=== PATIENT | male | born 1975 | race Caucasian/White ===

== ENCOUNTER 2025-04-06 09:55 | Day surgery (SDC) | payer OTHER, SELFPAY ==
[2025-04-06] VITALS (7 sets, daily range): BP systolic 107–128; BP diastolic 65–78; PULSE 62–73; RESP 11–16; TEMP 36.5–36.8; O2SAT 96–100; BMI 29.9
--- NOTE | 2025-04-06 13:47 | SUR.PHASEII ---
1317: Pt received in [facility] via [facility]. Report from Sona SALAZAR and Dr. Sharpe. Pt groggy. Easily aroused. Resp even, unlabored. VS stable. No c/o pain, discomfort.
--- NOTE | 2025-04-06 13:56 | SUR.PHASEII ---
1335: Pt stated he needed to void. Provided urinal. Voided 250cc pink tinged urine. 1350: Pt more alert. VS stable. Sitting up tolerating po fluids with no difficulty swallowing and no n/v.
--- NOTE | 2025-04-06 15:02 | SUR.PHASEII ---
1435: Pt fully awake, oriented x3. Correctional officers have been at bedside since pt arrival to [facility]. Pt dressed. Assisted to transport chair. Ambulation steady. Pt stataed understanding of discharge instructions. Pt discharged from [facility] in stable condition.
--- NOTE | 2025-04-06 15:41 | ESHP_ITS ---
RE: ERICA COLÓN : 1975 DATE OF ADMISSION: 04/05/2025 HISTORY OF PRESENT ILLNESS: Patient is again from [facility]. He is an inmate 49-year-old gentleman with pain in his left testis. He has a hard time to urinate, nocturia 3 times. Urinary flow is weak. No history of urinary burning. No history of gross hematuria. PAST SURGICAL HISTORY: Eye surgery, left shoulder surgery, and bilateral inguinal hernia repair. SOCIAL HISTORY: He has 2 children. ALLERGIES: PATIENT IS ALLERGIC TO CODEINE. PAST MEDICAL HISTORY: There is no history of diabetes mellitus. No history of hypertension. MEDICATIONS: Atenolol. PHYSICAL EXAMINATION: Clinical examination reveals. HEENT: Normal. NECK: Supple. LUNGS: Are clear. HEART: Sounds are normal. ABDOMEN: Is soft without any organomegaly. No guarding. No rigidity. EXTREMITIES: Are normal. GENITOURINARY: Phallus is normal. Testes are down in the scrotum. There is a left globus major which is mildly tender. There is no hydrocele. There are no hernias. There are no masses in the testicle. RECTAL: Examination reveals moderately enlarged smooth prostate. LABORATORY DATA: Patient's PSA is 0.17. PLAN: Patient is scheduled to have cystoscopy in view of his prostatism. Planned procedure, risks and complications have been discussed with the patient. Patient has understood them and agreed to proceed. Thank you very much for your kind referral. cc: [facility] DT: 10:57:54 TT: 11:31:00 Ref: [id number] - TID: [id number]
--- NOTE | 2025-04-09 07:10 | ESOP_ITS ---
RE: ERICA COLÓN : 1975 DATE OF OPERATION: 04/06/2025 PREOPERATIVE DIAGNOSIS: Prostatic obstruction. POSTOPERATIVE DIAGNOSIS: Prostatic obstruction. PROCEDURES PERFORMED: 1. Cystourethroscopy. 2. Urethral dilatation. ANESTHESIA: Monitored anesthesia by Dr. Fuller. INDICATION: The patient is a 50-year-old gentleman from [facility] [place] [facility]. He is complaining of slow urinary stream. He is also on tamsulosin. He is now scheduled to have a cystoscopy. His PSA has been normal at 0.17. Planned procedure, risks, and complications have been discussed with the patient. The patient understood them and agreed to proceed. DESCRIPTION OF PROCEDURE: After the patient was brought to the operating table under adequate monitored anesthesia by Dr. Fuller, he was placed in dorsal lithotomy position. Parts were prepped and draped in the usual fashion. Cystoscopy was then carried out which revealed adequate urethral meatus, normal-appearing urethra. Prostatic urethra revealed mild enlargement of the prostate. Residual urine was 2 ounces, yellow and clear, and was sent for culture and sensitivity examination. There are no intravesical stones or tumors. Ureteral orifices are found to be normal in position and appearance. The scope was withdrawn. The urethra was dilated. IMPRESSION: Mild enlargement of prostate. PLAN: Will continue tamsulosin. I will see him in 3 months' time. DT: 13:46:53 TT: 21:00:00 Ref: [id number] - TID: [id number]
== END 2025-04-06 14:35 ==
PROVIDERS: Referring Provider Surgery; Visit Provider Surgery
PROC: 0TJB8ZZ Inspection of Bladder, Via Natural or Artificial Opening Endoscopic (ICD-10-PCS; CPT 52000; principal; 2025-04-06 12:00)
DX: N40.1 Benign prostatic hyperplasia with lower urinary tract symptoms (principal); N13.8 Other obstructive and reflux uropathy; R39.12 Poor urinary stream; R35.1 Nocturia
CPT/HCPCS: 52281; 87086; A4217; A4649; J2250; J2704